=== PATIENT | male | born 1940 | race Caucasian/White ===

== ENCOUNTER 2017-12-31 10:31 | Outpatient (CLI) | payer MEDICARE, SELFPAY ==
[2017-12-31] VITALS (8 sets, daily range): BP systolic 147–182; BP diastolic 73–95; PULSE 62–73; RESP 16–21; TEMP 36.7; O2SAT 97–100
--- NOTE | 2017-12-31 10:33 | DI.RAD.S_ITS ---
PROCEDURE: PAIN C/T INTERLAMINAR INJECT INDICATIONS: Cervical stenosis with radiculopathy FINDINGS: Fluoroscopic spot filming was performed to verify placement of spinal needles at the paramedian and midline dorsal C6-C7 level(s), as labeled on the films. Appropriate location(s) of the needle tip(s) was confirmed by injection of iodinated contrast. IMPRESSION: Successful dorsal cervical needle tip localization for C6-C7 epidural interlaminar injection. Dictated by: Lalo Hanson M.D. on 12/31/2017 at 14:22 Approved by: Lalo Hanson M.D. on 12/31/2017 at 14:23
--- NOTE | 2017-12-31 11:28 | P.PCN_ITS ---
Procedures Date/Time Date of procedure: 12/31/17 Time of procedure: 11:26 General Procedure description: PREOP DIAGNOSIS 1. CERVICAL STENOSIS, 2. CERVICAL HNP WITH UPPER EXTREMITY RADICULAR FEATURES, POST OP DIAGNOSIS 1. CERVICAL STENOSIS, 2. CERVICAL HNP WITH UPPER EXTREMITY RADICULAR FEATURES, PROCEDURES 1. FLUORSCOPICALLY GUIDED CONTRAST CONTROLLED INTERLAMINAR EPIDURAL STEROID INJECTION - C6/7 TL MIMI PHYSICIAN: Jai Corral, DO INDICATIONS Jai is referred [facility] for treatment of Cervical HNP with Upper Extremity Paresthesias. FINDINGS Cervical Stenosis due to disc deterioration and nerve root irritation and nerve root irritation DESCRIPTION OF PROCEDURE Fluoroscopically guided, contrast-controlled C6/7 translaminar epidural steroid injection with conscious sedation. Following denial of allergy and review of potential side effects and complications, including, but not necessarily limited to, infection, allergic reaction, local tissue breakdown, temporary as well as permanent nerve injury, stroke, paralysis, and possible , the patient indicated that patient understood and agreed to proceed. An informed consent document was signed by the patient, witnessed by a nurse, and placed in the patient's chart. Additionally, other treatment options including modalities, medications, and physical therapy were reviewed with the patient. After review of previous anaesthesic history and IV conscious sedation the patient was deemed safe to proceed with todays procedure with IV conscious sedation as ASA class II designation. Safety time-out was performed to confirm patient ID, procedure to be performed and site of procedure. IV sedation was accomplished with a combination of 3mg of Versed administered by the RN after DO order, titrated to patient comfort during the course of the procedure while the patient remained responsive to all verbal commands. In the prone position, following sterile prep and drape of the cervical region, the C6/7 translaminar space was identified fluoroscopically. The skin was anesthetized via a 25-gauge 1.5-inch needle with 1% lidocaine solution. At this point, a 25-gauge, 2.5-inch short bevel spinal needle was atraumatically introduced and advanced under fluoroscopic guidance into epidural space at the C6/7 translaminar space. Depth was confirmed on lateral view. Radiological data, including multiple fluoroscopic views of the cervical spine, reveal a spinal needle at the C6/7 translaminar space. Lateral views then show placement of the needle in the epidural space. Subsequent views show contrast material flowing superiorly and inferiorly in the epidural space. DSA fluoroscopy with live contrast injection, once again, confirmed no vascular or intrathecal uptake. At this point, using loss of resistance technique with saline and air, the epidural space was entered. Following negative aspiration, injection of approximately 1.5 cc of Isovue-200 with live fluoroscopy in the AP view confirmed epidural flow in the epidural space without vascular or intrathecal uptake observed. Subsequently, a test dose of 1 cc of 1% lidocaine solution was injected and patient was observed for two minutes without signs or symptoms of complications, including abdominal pain, shortness of breath, bilateral upper or lower extremity weakness, nausea and vomiting, prior to steroid injection. At this point, 3 cc or 30 mg of dexamethasone was then injected without incident. The patient tolerated the procedure well without signs or symptoms of complications prior to being transferred to the recovery area for further monitoring, The patient was then transferred to the recovery area where they were observed for an appropriate period of time after the injection. The patient reported a VAS score of 6 prior to the procedure and a post-procedure VAS of 0. Total Fluoroscopy Time: 37.0 seconds Total Conscious Time: 24min POST OP INSTRUCTIONS The patient was provided a Pain Log to continue to record their response to the target-specific procedure prior to follow-up visit with the referring provider. Additionally, specific post-injection care instructions and a contact number to our office were provided if concerns arise regarding possible complications associated with the procedure are suspected. Jai Corral DO Complications: none
[2017-12-31] MEDS: DEXAMETHASONE 10 MG/ML VIAL 30 MG INJ (11:33)
[2017-12-31] MEDS: IOPAMIDOL 15 ML VIAL 3 ML INJ (11:34)
[2017-12-31] MEDS: MIDAZOLAM 5 MG/5 ML VIAL IV (11:34)
[2017-12-31] MEDS: LIDOCAINE 1% 20 ML INJ 5 ML INJ (11:34)
--- NOTE | 2018-01-01 15:06 | PC.NURSE ---
FOLLOW UP CALL MADE, PT C/O HEADACHE and DROWSINESS YESTERDAY BUT STATES HE IS BACK TO NORMAL TODAY AND DENIES PAIN.
== END 2017-12-31 12:38 | disposition home or self-care (01) ==
LOC: RAD 10:33
PROVIDERS: Visit Provider Physical Medicine & Rehabilitation
DX: M48.02 Spinal stenosis, cervical region (principal); M50.123 Cervical disc disorder at C6-C7 level with radiculopathy
CPT/HCPCS: 62321; 99152; J1100; J2250

== ENCOUNTER → 2022-07-09 11:40 | Outpatient (CLI) | payer MEDICARE, SELFPAY ==
--- NOTE | 2022-07-09 11:42 | DI.RAD.S_ITS ---
PROCEDURE: XR LUMBAR SPINE MIN 4V INDICATIONS: BACK PAIN TECHNIQUE: 5 views of the lumbar spine were acquired, including bilateral oblique views. COMPARISON: None. FINDINGS: Bones: 5 nonrib-bearing vertebrae are present. There is significant osteopenia. There is 4 millimeter retrolisthesis of L1 on L2 and 4 millimeter retrolisthesis of L2 on L3. Degenerative endplate changes, loss of disc height and bilateral facet hypertrophic changes are noted throughout lumbar spine. Age indeterminate compression deformity involving L4 vertebral body is seen with up to 50 percent loss of L4 vertebral body height. No suspicious bony lesions. Soft tissues: Overlying bowel gas pattern is normal. No suspicious soft tissue calcifications. Oblique images: No gross pars defects. IMPRESSION: Diffuse osteopenia and age indeterminate compression deformity at L4 level with up to 50 percent loss of L4 vertebral body height. No other compression fracture . Grade 1 retrolisthesis at L1-2 and L2-3 levels. Degenerative disc disease throughout lumbar spine is seen. No gross pars defects. Dictated by: Johnathan Dimas M.D. on 07/09/2022 at 13:33 Approved by: Johnathan Dimas M.D. on 07/09/2022 at 13:36
== END ==
PROVIDERS: PCP Family Medicine; Referring Provider Physical Medicine & Rehabilitation; Visit Provider Physical Medicine & Rehabilitation
DX: S32.040A Wedge compression fracture of fourth lumbar vertebra, initial encounter for closed fracture (principal); M51.16 Intervertebral disc disorders with radiculopathy, lumbar region; M85.88 Other specified disorders of bone density and structure, other site; M54.9 Dorsalgia, unspecified
CPT/HCPCS: 72110; 99214

== ENCOUNTER → 2022-07-13 11:28 | Outpatient (CLI) | payer MEDICARE, SELFPAY ==
--- NOTE | 2022-07-13 11:31 | DI.MRI.S_ITS ---
PROCEDURE: MR LUMBAR SPINE WO CON INDICATIONS: L4 fracture, left L4-5 radiculopathy? TECHNIQUE: Noncontrast sagittal T1 spin echo and T2 fast echo, sagittal STIR, and T2 fast spin echo through the lumbar spine. In cases with scoliosis, additional coronal T2 fast spin echo may be performed. COMPARISON: None. FINDINGS: Image quality: Excellent. Alignment and Curvature: There is normal bony alignment. Bone Marrow: 75% L4 wedge-shaped anterior height loss noted with retropulsed fracture fragment but no bone marrow edema. Remainder of the vertebral body heights are preserved. Multilevel degenerative endplate changes present Spinal Cord: Conus medullaris terminates at the L1 level. Visualized cord demonstrates normal signal and size. Paraspinous Soft Tissues: No paravertebral masses. T12-L1: Disc height preserved. No central or foraminal stenosis L1-L2: Disc height loss and posterior disc bulge results in mild central stenosis. Moderate bilateral foraminal stenosis L2-L3: A disc space narrowing with circumferential disc bulge, hypertrophic facet joints and ligamentum flavum laxity combined result in moderate central stenosis. Moderate bilateral foraminal stenosis L3-L4: Disc space narrowing with circumferential disc bulge and small retropulsed fracture fragment results in moderate central stenosis. Hypertrophic facet joints contribute to moderate bilateral foraminal stenosis L4-L5: Disc height loss and circumferential disc bulge with hypertrophic facet joints results in mild central stenosis. Moderate bilateral foraminal stenosis. L5-S1: Disc space narrowing with circumferential disc bulge and hypertrophic facet joints present. Mild central stenosis. Moderate bilateral foraminal stenosis, greater on the left IMPRESSION: Old L4 compression fracture without bone marrow edema Multilevel degenerative disc disease and arthropathy results in varying degrees of central and foraminal stenosis including moderate central and bilateral foraminal stenosis at L3-4 and moderate bilateral foraminal stenosis L4-5, L5-S1 Approved by: Gen Matta M.D. on 07/13/2022 at 13:55
== END ==
PROVIDERS: PCP Family Medicine; Referring Provider Physical Medicine & Rehabilitation; Visit Provider Physical Medicine & Rehabilitation
DX: M51.36 Other intervertebral disc degeneration, lumbar region (principal); M51.37 Other intervertebral disc degeneration, lumbosacral region; M47.816 Spondylosis without myelopathy or radiculopathy, lumbar region; M47.817 Spondylosis without myelopathy or radiculopathy, lumbosacral region; M48.061 Spinal stenosis, lumbar region without neurogenic claudication; M48.07 Spinal stenosis, lumbosacral region; M48.56XS Collapsed vertebra, not elsewhere classified, lumbar region, sequela of fracture; M54.50 Low back pain, unspecified
CPT/HCPCS: 72148